=== PATIENT | female | born 1940 | race Two or more races ===

== ENCOUNTER 2017-02-21 00:19 | Emergency (ER) | payer MEDICARE, OTHER ==
[2017-02-21] MEDS ORDERED: ACETAMINOPHEN 325 MG TABLET PO ONE (04:38)
--- NOTE | 2017-02-21 05:04 | RADIOLOGY REPORT (SQ) ---
EXAM DESCRIPTION: TIBIA FIBULA RIGHT COMPLETED DATE/TIME: 02/21/2017 4:01 am REASON FOR STUDY: pain . Throbbing calf muscle pain. COMPARISON: Right knee x-ray 03/05/2015. NUMBER OF VIEWS: Two views. TECHNIQUE: Two radiographic images acquired of the right tibia and fibula to include the knee and an kle in at least one projection. LIMITATIONS: None. FINDINGS: MINERALIZATION: Normal. BONES: No acute fracture or dislocation. SOFT TISSUES: No obvious swelling or radiopaque foreign body. IMPRESSION: No radiographic evidence of acute injury. TECHNICAL DOCUMENTATION: JOB ID: [id number] [employer]- All Rights Reserved
--- NOTE | 2017-02-21 05:28 | ER Document Report ---
ED Extremity Problem, Lower - General Chief Complaint: Leg Pain Stated Complaint: LEG AND HIP PAIN Time Seen by Provider: 02/21/17 02:54 Notes: Patient is a 76-year-old female presents emergency department complaining of right frias pain. Described as burning pain worse with prolonged movement. Patient states that this sudden onset over the past 3 days. States it is worse with movement and does not bother her when she is lying in bed. Hurts to palpation at the lateral aspect of the frias. Otherwise she denies any swelling of her feet, erythema, edema. Has been taking Motrin at home for pain. Patient is not allowed to take Motrin for pain given that she has history of kidney disease. denies recent travel, surgery, no h/o cancer, nonsmoker TRAVEL OUTSIDE OF THE [place] IN LAST 30 DAYS: No - Related Data Allergies/Adverse Reactions: No Known Allergies Allergy (Verified 08/06/16 08:33) Past Medical History - Social History Smoking Status: Unknown if Ever Smoked Family History: CAD, Hyperlipidemia, Hypertension Patient has suicidal ideation: No Patient has homicidal ideation: No - Past Medical History Cardiac Medical History: Reports: Hx Heart Attack - 2009, Hx Hypercholesterolemia, Hx Hypertension - many years Denies: Hx Coronary Artery Disease Endocrine Medical History: Reports: Hx Diabetes Mellitus Type 2, Hx Hypothyroidism Renal/ Medical History: Denies: Hx Peritoneal Dialysis Musculoskeltal Medical History: Reports Hx Arthritis - back, Reports Hx Musculoskeletal Deformity, Reports Hx Musculoskeletal Trauma Past Surgical History: Reports: Hx Section, Hx Orthopedic Surgery. Denies: Hx Pacemaker - Immunizations Immunizations up to date: No Hx Diphtheria, Pertussis, Tetanus Vaccination: No Physical Exam - Vital signs Vitals: Temp Pulse Resp BP Pulse Ox 98.1 F 76 17 234/106 H 99 02/21/17 00:52 02/21/17 00:52 02/21/17 00:52 02/21/17 00:52 02/21/17 00:52 Interpretation: Hypertensive. No: Tachycardic, Tachypneic - General General appearance: Appears well, Alert In distress: None - Respiratory Respiratory status: No respiratory distress Chest status: Nontender Breath sounds: Normal Chest palpation: Normal - Cardiovascular Rhythm: Regular Heart sounds: Normal auscultation Murmur: No Pulses: Normal: Popliteal, Posterior tibial, Dorsalis pedis Normal capillary refill: Yes - Extremities Calf: Normal, Nontender, Other - -homans sign. No: Unable to bear weight Left calf in cm: 39 Right calf in cm: 38 Ankle: Normal, Nontender. No: Edema, Unable to bear weight Foot: Normal, Nontender. No: Edema Notes: tenderness along the right lateral frias - Neurological Sensory: Normal - Skin Skin Temperature: Warm Skin Moisture: Dry Skin Color: Normal. negative: Erythema Skin Turgor: Elastic Skin irregularity: negative: Erythema, Tender indurated area Course - Re-evaluation Re-evalutation: 02/21/17 05:27 This 76-year-old female is hemodynamic stable, no acute distress and afebrile. Patient's well score is 0. No indication for additional imaging to evaluate for DVT given patient does not have enough precipitating factors. Physical exam and history consistent with frias splints. Discussed with patient management and home and indications return to the emergency department - Vital Signs Vital signs: Temp Pulse Resp BP Pulse Ox 98.1 F 76 17 168/82 H 99 02/21/17 00:52 02/21/17 00:52 02/21/17 05:46 02/21/17 05:46 02/21/17 05:46 - Diagnostic Test Radiology reviewed: Image reviewed, Reports reviewed Discharge - Discharge Clinical Impression: Leg pain Condition: Good Disposition: HOME, SELF-CARE Instructions: Leg Pain Nonspecific ([facility]) Additional Instructions: You can use salonpas patches over the counter Prescriptions: Tramadol HCl 50 mg PO Q8HP PRN #15 tablet PRN Reason: Forms: Elevated Blood Pressure Referrals: MIGUEL ANGEL MOSS MD [Primary Care Provider] - Follow up in 3-5 days
[2017-02-21] MEDS ORDERED: TRAMADOL HCL 50 MG TABLET PO ONE (05:30)
[2017-02-21 06:15] VITALS: BP 168/82
== END 2017-02-21 05:50 | disposition home or self-care (01) ==
LOC: ER 00:19
DX: M79.661 Pain in right lower leg (principal); I25.2 Old myocardial infarction; I10 Essential (primary) hypertension; E11.9 Type 2 diabetes mellitus without complications; Z87.442 Personal history of urinary calculi
CPT/HCPCS: 99283; 73590; A9270 ×2

== ENCOUNTER → 2017-03-26 | Outpatient (CLI) | payer MEDICARE, OTHER ==
[2017-03-26 13:02] LABS: HEMATOCRIT 38.9 % (36.0-47.0); HEMOGLOBIN 12.7 g/dL (12.0-15.5); HGB HCT DIFFERENCE -0.8; MEAN CORPUSCULAR HEMOGLOBIN 29.8 pg (27.0-33.4); MEAN CORPUSCULAR HGB CONC 32.7 g/dL (32.0-36.0); MEAN CORPUSCULAR VOLUME 91 fl (80-97); RED BLOOD COUNT 4.26 10^6/uL (3.72-5.28); RED CELL DISTRIBUTION WIDTH 13.3 % (11.5-14.0); WHITE BLOOD COUNT 6.8 10^3/uL (4.0-10.5)
[2017-03-26 13:16] LABS: APPEARANCE,URINE CLEAR; BILIRUBIN,URINE NEGATIVE (NEGATIVE); GLUCOSE, URINE NEGATIVE (NEGATIVE); KETONES,URINE NEGATIVE (NEGATIVE); LEUKOCYTE ESTERASE,URINE TRACE (NEGATIVE); NITRITE,URINE NEGATIVE (NEGATIVE); PROTEIN,URINE NEGATIVE (NEGATIVE); URINE SPECIFIC GRAVITY 1.011; UROBILINOGEN,URINE NEGATIVE mg/dL (<2.0)
[2017-03-26 13:18] LABS: ANION GAP 13 (5-19); BLOOD UREA NITROGEN 20 mg/dL (7-20); CALCIUM 10.1 mg/dL (8.4-10.2); CARBON DIOXIDE 26 mmol/L (22-30); CHLORIDE 100 mmol/L (98-107); CREATININE RESULT 1.28 mg/dL (0.52-1.25); GLUCOSE 140 mg/dL (75-110); POTASSIUM 4.7 mmol/L (3.6-5.0); SODIUM 139.2 mmol/L (137-145)
== END ==
LOC: OD 11:51
PROVIDERS: ATTEND Internal Medicine Nephrology
DX: I12.9 Hypertensive chronic kidney disease with stage 1 through stage 4 chronic kidney disease, or unspecified chronic kidney disease (principal); N18.3 Chronic kidney disease, stage 3 (moderate); E87.5 Hyperkalemia; E11.9 Type 2 diabetes mellitus without complications
CPT/HCPCS: 36415; 80048; 81001; 85027

== ENCOUNTER 2017-07-07 17:52 | Emergency (ER) | payer MEDICARE, OTHER ==
[2017-07-07] MEDS ORDERED: ATENOLOL 50 MG TABLET PO ONE (18:51)
[2017-07-07] MEDS ORDERED: LOSARTAN POTASSIUM 25 MG TABLET PO ONE (18:51)
[2017-07-07] MEDS ORDERED: HYDROMORPHONE HCL INJ/PF 2 MG/ML AMPULE IM ONE (18:51)
--- NOTE | 2017-07-07 18:53 | ER Document Report ---
ED Medical Screen (RME) - General Chief Complaint: Leg Pain Stated Complaint: LEG PAIN Time Seen by Provider: 07/07/17 18:35 Notes: Patient complains of right lateral thigh pain. Patient is also noticed to have a very high blood pressure. However on patient's last visit the emergency department it was similarly elevated. Patient denies missing any doses of her blood pressure medication. No recent falls or trauma. TRAVEL OUTSIDE OF THE [place] IN LAST 30 DAYS: No - Related Data Allergies/Adverse Reactions: tramadol Allergy (Verified 07/07/17 18:00) Past Medical History - Past Medical History Cardiac Medical History: Reports: Hx Heart Attack - 2009, Hx Hypercholesterolemia, Hx Hypertension - many years Denies: Hx Coronary Artery Disease Endocrine Medical History: Reports: Hx Diabetes Mellitus Type 2, Hx Hypothyroidism Renal/ Medical History: Denies: Hx Peritoneal Dialysis Musculoskeltal Medical History: Reports Hx Arthritis - back, Reports Hx Musculoskeletal Deformity, Reports Hx Musculoskeletal Trauma Past Surgical History: Reports: Hx Section, Hx Orthopedic Surgery. Denies: Hx Pacemaker - Immunizations Immunizations up to date: No Hx Diphtheria, Pertussis, Tetanus Vaccination: No Physical Exam - Vital signs Vitals: Temp Pulse BP Pulse Ox 98.4 F 66 231/110 H 97 07/07/17 18:01 07/07/17 18:01 07/07/17 18:01 07/07/17 18:01 Course - Vital Signs Vital signs: Temp Pulse Resp BP Pulse Ox 98.4 F 66 231/110 H 97 07/07/17 18:01 07/07/17 18:01 07/07/17 18:01 07/07/17 18:01
--- NOTE | 2017-07-07 20:47 | ER Document Report ---
ED General - General Chief Complaint: Leg Pain Stated Complaint: LEG PAIN Time Seen by Provider: 07/07/17 18:35 TRAVEL OUTSIDE OF THE [place] IN LAST 30 DAYS: No - HPI Notes: Patient is a 76-year-old female with a history of hypertension, CA, diabetes, hypothyroid, hypercholesterolemia presents to the ED complaining of right leg pain x1-2 days. Pt states that she does have pain with ambulation. Pt has a h/ o sciatica as well. Pt states that she will feel pain in that rt buttock area that radiates down the LE. Patient states that she does continue take her home medications as directed. She has no other concerns or complaints at this time. Otherwise she states that she feels well. Denies any headache, fever,neck pain, changes in vision/speech/mentation/hearing, URI, sore throat, chest pain, palpitations, syncope, cough, shortness of breath, wheeze, dyspnea, abdominal pain, nausea/vomiting/diarrhea, urinary retention, dysuria, hematuria, loss of control of bowel or bladder, numbness/tingling, saddle anesthesia, muscle paralysis/weakness, or rash. - Related Data Allergies/Adverse Reactions: tramadol Allergy (Verified 07/07/17 18:00) Past Medical History - Social History Smoking Status: Unknown if Ever Smoked Family History: CAD, Hyperlipidemia, Hypertension - Past Medical History Cardiac Medical History: Reports: Hx Heart Attack - 2009, Hx Hypercholesterolemia, Hx Hypertension - many years Denies: Hx Coronary Artery Disease Endocrine Medical History: Reports: Hx Diabetes Mellitus Type 2, Hx Hypothyroidism Renal/ Medical History: Denies: Hx Peritoneal Dialysis Musculoskeltal Medical History: Reports Hx Arthritis - back, Reports Hx Musculoskeletal Deformity, Reports Hx Musculoskeletal Trauma Past Surgical History: Reports: Hx Section, Hx Orthopedic Surgery. Denies: Hx Pacemaker - Immunizations Immunizations up to date: No Hx Diphtheria, Pertussis, Tetanus Vaccination: No Review of Systems - Review of Systems Notes: REVIEW OF SYSTEMS: CONSTITUTIONAL : Denies fever, chills, or sweats. Denies recent illness. EENT: Denies eye, ear, throat, or mouth pain or symptoms. Denies nasal or sinus congestion or discharge. Denies throat, tongue, or mouth swelling or difficulty swallowing. CARDIOVASCULAR: Denies chest pain. Denies palpitations or racing or irregular heart beat. Denies ankle edema. RESPIRATORY: Denies cough, cold, or chest congestion. Denies shortness of breath, difficulty breathing, or wheezing. GASTROINTESTINAL: Denies abdominal pain or distention. Denies nausea, vomiting , or diarrhea. Denies blood in vomitus, stools, or per rectum. Denies black, tarry stools. Denies constipation. GENITOURINARY: Denies difficulty urinating, painful urination, burning, frequency, blood in urine, or discharge. MUSCULOSKELETAL: see hpi SKIN: Denies rash, lesions or sores. NEUROLOGICAL: Denies confusion or altered mental status. Denies passing out or loss of consciousness. Denies dizziness or lightheadedness. Denies headache. Denies weakness or paralysis or loss of use of either side. Denies problems with gait or speech. Denies sensory loss, numbness, or tingling. ALL OTHER SYSTEMS REVIEWED AND NEGATIVE. Dictation was performed using [employer] voice recognition software Physical Exam - Vital signs Vitals: Temp Pulse BP Pulse Ox 98.4 F 66 231/110 H 97 07/07/17 18:01 07/07/17 18:01 07/07/17 18:01 07/07/17 18:01 Notes: PHYSICAL EXAMINATION: GENERAL: Well-appearing, well-nourished and in no acute distress. A&Ox4. Pleasant, happy. HEAD: Atraumatic, normocephalic. EYES: Pupils equal round and reactive to light, extraocular movements intact, sclera anicteric, conjunctiva are normal. ENT: Nares patent and without discharge. oropharynx clear without exudates. No tonsilar hypertrophy or erythema. Moist mucous membranes. No sinus tenderness. NECK: Normal range of motion, supple without lymphadenopathy. No rigidity/ meningismus. LUNGS: Breath sounds clear to auscultation bilaterally and equal. No wheezes rales or rhonchi. HEART: Regular rate and rhythm without murmurs, rubs, gallops. ABDOMEN: Soft, nontender, nondistended abdomen. No guarding, no rebound. No masses appreciated. Normal bowel sounds present. No CVA tenderness bilaterally. Musculoskeletal: LE's b/l: FROM to passive/active. Strength 5+/5. + tenderness to the rt posterior calf and medial thigh. No erythema, warmth, cord, induration, or ecchymosis noted. N/V intact distal b/l. Extremities: No cyanosis, clubbing, or edema b/l. Peripheral pulses 2+. Capillary refill less than 3 seconds. NEUROLOGICAL: MMSE intact. Cranial nerves grossly intact. Normal speech. Normal sensory, motor exams PSYCH: Normal mood, normal affect. SKIN: Warm, Dry, normal turgor, no rashes or lesions noted. Course - Re-evaluation Re-evalutation: 07/07/17 22:52 Patient is an afebrile, well-hydrated, 76-year-old female who presents the ED with right leg pain and right buttock pain, suspect possible sciatica. Vitals are stable. PE is otherwise unremarkable for any focal neurological deficits. Venous Doppler was unremarkable to the right lower extremity. Patient states that her pain has improved and she is feeling better than when she arrived. Patient does have long-standing hypertension which has been stable during her stay. Patient did receive 2 blood pressure medications at arrival. Patient instructed to continue her home medications as directed. Patient is currently asymptomatic and has been asymptomatic with elevated blood pressure. Low sodium diet and monitor blood pressure regularly. Low suspicion for any meningitis, fracture, expanding/ruptured AAA, cauda equina syndrome, epidural mass lesion/abscess, herniated disc causing severe spinal stenosis, or other systemic infection at this time. Patient is aware that her condition can change from initial presentation and that she needs monitor symptoms closely for any acute changes. Conservative measures for symptoms. Recheck with your PCM in 2-3 days. Return to the ED with any worsening/concerning symptoms otherwise as reviewed discharge. Patient is in agreement. - Vital Signs Vital signs: Temp Pulse Resp BP Pulse Ox 98.4 F 61 182/78 H 98 07/07/17 18:01 07/07/17 19:20 07/07/17 22:31 07/07/17 22:31 Discharge - Discharge Clinical Impression: Leg pain, right Condition: Stable Disposition: HOME, SELF-CARE Instructions: Sciatica ([facility]), Leg Pain Nonspecific ([facility]), Ice Packs ([facility]), Warm Packs ([facility]), High Blood Pressure ([facility]) Additional Instructions: Rest, Ice, Compression, Elevation Monitor blood pressure and keep a log Low sodium diet Take home medications as directed* Tylenol as needed Light stretches daily Strength exercises as able Moist heat and massage may help F/u with your PCP in 2-3 days for a recheck and management of your elevated blood pressure Consider consult(s) with Orthopedics/physical therapy for ongoing/worsening symptoms Consider consult with a [facility] (Dr. Méndez) Return to the ED with any worsening symptoms and/or development of fever, headache, changes in vision/hearing/speech/mentation, chest pain, palpitations, syncope, shortness of breath, trouble breathing, abdominal pain, n/v/d, muscle weakness/paralysis, numbness/tingling, swelling, redness, or other worsening symptoms that are concerning to you. Forms: Elevated Blood Pressure Referrals: MIGUEL ANGEL MOSS MD [Primary Care Provider] - 07/09/17 SAHRA MÉNDEZ MD [ACTIVE STAFF] - Follow up as needed [facility] [Provider Group] - Follow up as needed
[2017-07-07 23:41] VITALS: BP 200/80
--- NOTE | 2017-07-08 08:14 | XCELERA REPORT ---
[address] [address] Lower Extremity Venous Evaluation Name: IRASEMA HOLGUIN Age: 76 yrs Gender: Female : 1940 Patient Status: Emergency Patient Location: ER Study Date: 07/07/2017 10:06 PM Procedure: Color flow and duplex imaging of the veins of the right lower extremity as well as the left Common Femoral vein. Reason For Study: Rt posterior calf/leg pain Ordering Physician: MORENO BALL PA-C Performed By: Stella Mccauley Right Sided Venous Evaluation Normal vessel filling wall to wall, compression and augmentation as well as Colour flow down to the infrageniculate veins. Left Sided Venous Evaluation The left common femoral vein is fully compressible. Spontaneous and phasic flow is present in the left common femoral vein. Interpretation Summary No duplex evidence of DVT or obstruction in the right lower extremity nor in the left Common Femoral vein. : MORENO BALL PA-C > Sabino Thomas
== END 2017-07-07 23:06 | disposition home or self-care (01) ==
LOC: ER 17:52
DX: M79.604 Pain in right leg (principal); M25.551 Pain in right hip; I10 Essential (primary) hypertension; I25.2 Old myocardial infarction; E11.9 Type 2 diabetes mellitus without complications; Z79.899 Other long term (current) drug therapy; Z88.5 Allergy status to narcotic agent
CPT/HCPCS: 99284; 96372; 93971 ×2; A9270 ×2; J1170

== ENCOUNTER → 2017-09-30 | Outpatient (CLI) | payer MEDICARE, OTHER ==
[2017-09-30 13:35] LABS: HEMATOCRIT 36.4 % (36.0-47.0); HEMOGLOBIN 12.3 g/dL (12.0-15.5); MEAN CORPUSCULAR HEMOGLOBIN 30.2 pg (27.0-33.4); MEAN CORPUSCULAR HGB CONC 33.8 g/dL (32.0-36.0); MEAN CORPUSCULAR VOLUME 89 fl (80-97); PLATELET COUNT 282 10^3/uL (150-450); RED BLOOD COUNT 4.07 10^6/uL (3.72-5.28); RED CELL DISTRIBUTION WIDTH 12.8 % (11.5-14.0); WHITE BLOOD COUNT 9.6 10^3/uL (4.0-10.5)
[2017-09-30 13:45] LABS: APPEARANCE,URINE CLEAR; BILIRUBIN,URINE NEGATIVE (NEGATIVE); COLOR,URINE YELLOW; GLUCOSE, URINE NEGATIVE (NEGATIVE); KETONES,URINE NEGATIVE (NEGATIVE); LEUKOCYTE ESTERASE,URINE NEGATIVE (NEGATIVE); NITRITE,URINE NEGATIVE (NEGATIVE); PROTEIN,URINE NEGATIVE (NEGATIVE); UROBILINOGEN,URINE NEGATIVE mg/dL (<2.0)
[2017-09-30 14:03] LABS: ANION GAP 14 (5-19); BLOOD UREA NITROGEN 20 mg/dL (7-20); CALCIUM 10.9 mg/dL (8.4-10.2); CARBON DIOXIDE 29 mmol/L (22-30); CHLORIDE 98 mmol/L (98-107); GLUCOSE 100 mg/dL (75-110); SODIUM 140.6 mmol/L (137-145)
[2017-10-01 12:38] LABS: CREATININE URINE 107.8 mg/dL (Not Estab.); MICROALBUMIN URINE 29.1 ug/mL (Not Estab.)
== END ==
LOC: OD 12:24
PROVIDERS: ATTEND Internal Medicine Nephrology
DX: I12.9 Hypertensive chronic kidney disease with stage 1 through stage 4 chronic kidney disease, or unspecified chronic kidney disease (principal); N18.3 Chronic kidney disease, stage 3 (moderate); E11.9 Type 2 diabetes mellitus without complications; E87.5 Hyperkalemia
CPT/HCPCS: 36415; 80048; 81001; 82043; 82570; 85027

== ENCOUNTER 2017-10-05 12:23 | Emergency (ER) | payer MEDICARE, OTHER ==
[2017-10-05 12:42] VITALS: BP 180/84
--- NOTE | 2017-10-05 13:08 | ER Document Report ---
ED Medical Screen (RME) - General Chief Complaint: Blurred Vision Stated Complaint: VISION PROBLEM Time Seen by Provider: 10/05/17 13:06 Notes: Patient states starting yesterday she noticed that her vision was blurry in her right eye. She states that her left eye is watering but it is not blurry. She denies any pain. No nausea. She states that she can see out of the right eye but that things are blurry. She states she is also noticed that her blood sugars have been high at home. No previous history of any type of eye problems. TRAVEL OUTSIDE OF THE [place] IN LAST 30 DAYS: No - Related Data Allergies/Adverse Reactions: tramadol Allergy (Verified 07/07/17 18:00) Past Medical History - Social History Chew tobacco use (# tins/day): No Frequency of alcohol use: None Drug Abuse: None - Past Medical History Cardiac Medical History: Reports: Hx Heart Attack - 2009, Hx Hypercholesterolemia, Hx Hypertension - many years Denies: Hx Coronary Artery Disease Endocrine Medical History: Reports: Hx Diabetes Mellitus Type 2, Hx Hypothyroidism Renal/ Medical History: Denies: Hx Peritoneal Dialysis Musculoskeltal Medical History: Reports Hx Arthritis - back, Reports Hx Musculoskeletal Deformity, Reports Hx Musculoskeletal Trauma Past Surgical History: Reports: Hx Section, Hx Orthopedic Surgery. Denies: Hx Pacemaker - Immunizations Immunizations up to date: No Hx Diphtheria, Pertussis, Tetanus Vaccination: No Physical Exam - Vital signs Vitals: Temp Pulse Resp BP Pulse Ox 98.2 F 91 14 180/84 H 97 10/05/17 12:41 10/05/17 12:41 10/05/17 12:41 10/05/17 12:41 10/05/17 12:41 Course - Vital Signs Vital signs: Temp Pulse Resp BP Pulse Ox 98.2 F 91 14 180/84 H 97 10/05/17 12:41 10/05/17 12:41 10/05/17 12:41 10/05/17 12:41 10/05/17 12:41
[2017-10-05 13:59] LABS: ABSOLUTE LYMPHOCYTES (AUTO) 3.5 10^3/uL (0.5-4.7); ABSOLUTE MONOCYTES (AUTO) 0.7 10^3/uL (0.1-1.4); ABSOLUTE NEUT (AUTO) 5.1 10^3/uL (1.7-8.2); BASOPHILS % (AUTO) 0.4 % (0-2); EOSINOPHILS % (AUTO) 0.5 % (0-6); HEMATOCRIT 35.9 % (36.0-47.0); HEMOGLOBIN 12.5 g/dL (12.0-15.5); LYMPHOCYTES % (AUTO) 37.6 % (13-45); MEAN CORPUSCULAR HEMOGLOBIN 30.8 pg (27.0-33.4); MEAN CORPUSCULAR HGB CONC 34.9 g/dL (32.0-36.0); MEAN CORPUSCULAR VOLUME 88 fl (80-97); MONOCYTES % (AUTO) 7.6 % (3-13); PLATELET COUNT 307 10^3/uL (150-450); RED BLOOD COUNT 4.07 10^6/uL (3.72-5.28); RED CELL DISTRIBUTION WIDTH 12.8 % (11.5-14.0); SEGMENTED NEUTROPHILS % (AUTO) 53.9 % (42-78); TOTAL CELLS COUNTED % (AUTO) 100 %; WHITE BLOOD COUNT 9.4 10^3/uL (4.0-10.5)
[2017-10-05 14:18] LABS: ANION GAP 14 (5-19); BLOOD UREA NITROGEN 21 mg/dL (7-20); CALCIUM 10.6 mg/dL (8.4-10.2); CARBON DIOXIDE 29 mmol/L (22-30); CHLORIDE 95 mmol/L (98-107); GLUCOSE 64 mg/dL (75-110); SODIUM 137.8 mmol/L (137-145)
--- NOTE | 2017-10-05 16:47 | ER Document Report ---
ED General - General Chief Complaint: Blurred Vision Stated Complaint: VISION PROBLEM Time Seen by Provider: 10/05/17 13:06 Mode of Arrival: Ambulatory Information source: Patient TRAVEL OUTSIDE OF THE [place] IN LAST 30 DAYS: No - HPI Patient complains to provider of: blurry vision right eye Onset: Yesterday - awoke with it yesterday am - Related Data Allergies/Adverse Reactions: tramadol Allergy (Verified 07/07/17 18:00) Past Medical History - Social History Smoking Status: Never Smoker Chew tobacco use (# tins/day): No Frequency of alcohol use: None Drug Abuse: None Family History: CAD, Hyperlipidemia, Hypertension Patient has suicidal ideation: No Patient has homicidal ideation: No - Past Medical History Cardiac Medical History: Reports: Hx Heart Attack - 2009, Hx Hypercholesterolemia, Hx Hypertension - many years Denies: Hx Coronary Artery Disease Endocrine Medical History: Reports: Hx Diabetes Mellitus Type 2, Hx Hypothyroidism Renal/ Medical History: Denies: Hx Peritoneal Dialysis Musculoskeltal Medical History: Reports Hx Arthritis - back, Reports Hx Musculoskeletal Deformity, Reports Hx Musculoskeletal Trauma Past Surgical History: Reports: Hx Section, Hx Orthopedic Surgery. Denies: Hx Pacemaker - Immunizations Immunizations up to date: No Hx Diphtheria, Pertussis, Tetanus Vaccination: No Review of Systems - Review of Systems Constitutional: No symptoms reported EENT: No symptoms reported Cardiovascular: No symptoms reported Respiratory: No symptoms reported Gastrointestinal: No symptoms reported Genitourinary: No symptoms reported Female Genitourinary: No symptoms reported Musculoskeletal: No symptoms reported Skin: No symptoms reported Hematologic/Lymphatic: No symptoms reported Neurological/Psychological: See HPI Physical Exam - Vital signs Vitals: Temp Pulse Resp BP Pulse Ox 98.2 F 91 14 180/84 H 97 10/05/17 12:41 10/05/17 12:41 10/05/17 12:41 10/05/17 12:41 10/05/17 12:41 - Notes Notes: PHYSICAL EXAMINATION: GENERAL: Well-appearing, well-nourished and in no acute distress. HEAD: Atraumatic, normocephalic. EYES: Pupils equal round and reactive to light, extraocular movements intact, conjunctiva are normal. Please see HEENT exam for further notes ENT: Nares patent, oropharynx clear without exudates. Moist mucous membranes. NECK: Normal range of motion, supple without lymphadenopathy LUNGS: Breath sounds clear to auscultation bilaterally and equal. No wheezes rales or rhonchi. HEART: Regular rate and rhythm without murmurs ABDOMEN: Soft, nontender, nondistended abdomen. No guarding, no rebound. No masses appreciated. Female : deferred Musculoskeletal: Normal range of motion, no pitting or edema. No cyanosis. NEUROLOGICAL: Cranial nerves grossly intact. Normal speech, normal gait. Normal sensory, motor exams PSYCH: Normal mood, normal affect. SKIN: Warm, Dry, normal turgor, no rashes or lesions noted. - HEENT Head: Normocephalic, Atraumatic Eyes: Normal, Tears - os Conjunctiva: Normal Cornea: Normal Extraocular movements intact: Yes Eyelashes: Normal Pupils: PERRL Visual acuity- Right eye: 20/200 Visual acuity- Left eye: 20/50 -1 Visual acuity- Both eyes: 20/50 -1 Corrective lenses worn: No Right intraocular pressure: 15 12 and 18 Nerve palsy: No Visual hope normal: No Course - Re-evaluation Re-evalutation: 10/05/17 17:37 Su from MRI called over. She states patient's GFR was low so she talked to the radiologist and they are going to do the MRI without contrast. 10/05/17 19:15 Intraocular pressure I was 15, 12 and 18. 10/05/17 19:24 I did speak to who stated to have the patient call the office at 8: 30 in the morning and he will be seeing her tomorrow. Patient and her son are aware and agreeable to the plan. 10/05/17 19:25 Also told me she saw the risk and insurance manager yesterday who is following her kidney function. 10/05/17 19:29 Blood sugar was 65. She was asymptomatic. We did give her snack prior to discharge. - Vital Signs Vital signs: Temp Pulse Resp BP Pulse Ox 98.2 F 91 14 180/84 H 97 10/05/17 12:41 10/05/17 12:41 10/05/17 12:41 10/05/17 12:41 10/05/17 12:41 - Laboratory Result Diagrams: 10/05/17 13:45 10/05/17 13:45 Laboratory results interpreted by me: 10/05/17 10/05/17 13:45 13:45 Hct 35.9 L Chloride 95 L BUN 21 H Creatinine 1.54 H Est GFR ( Amer) 40 L Est GFR (Non-Af Amer) 33 L Glucose 64 L Calcium 10.6 H - Diagnostic Test Radiology reviewed: Reports reviewed Radiology results interpreted by me: 10/05/17 19:23 MRI of head and orbits showed no acute findings. 10/05/17 19:24 Discharge - Discharge Clinical Impression: Blurry vision, right eye Disposition: HOME, SELF-CARE Additional Instructions: All Dr. Sheth"s office in the a.m. at 830 will let you know what time to go in for appointment tomorrow. Referrals: JAKY SHETH, [ACTIVE STAFF] - Follow up as needed
--- NOTE | 2017-10-05 19:01 | RADIOLOGY REPORT (SQ) ---
EXAM DESCRIPTION: MRI HEAD WITHOUT COMPLETED DATE/TIME: 10/05/2017 6:44 pm REASON FOR STUDY: right blurry vision please include orbits COMPARISON: None. TECHNIQUE: Multiplanar imaging includes non-contrasted T1, T2, FLAIR, and Diffusion with ADC map seq uences. Images stored on PACS. Additional noncontrast T1 and T2 weighted imaging of the orbits perfo rmed. No contrast was given due to patient's decreased GFR. LIMITATIONS: None. FINDINGS: ANATOMY: No anomalies. Normal vascular flow voids. Pituitary fossa normal. CSF SPACES: Normal in size and contour for degree of volume loss. No hemorrhage. CEREBRUM: Volume loss predominately affecting the frontal and anterior temporal lobes. A few high-si gnal intensity lesions scattered throughout the white matter on FLAIR imaging with distribution sugge sting chronic micro-vascular ischemic change. Sulci and gyri normal in size and contour. No evidenc e of hemorrhage, mass or extraaxial fluid collection. POSTERIOR FOSSA: No signal alteration. No hemorrhage. No edema, masses or mass effect. Internal barbara tory canals, cerebello-pontine angles, mastoids normal. DIFFUSION: Negative for acute or sub-acute infarction. ORBITS: No masses. Globes normal. PARANASAL SINUSES: No fluid levels. Mucosa normal. OTHER: No other significant finding. IMPRESSION: NO ACUTE ISCHEMIA, HEMORRHAGE, OR MASS LESION. NO SIGNIFICANT ORBITAL ABNORMALITY IDENTIFIED. MILD CHRONIC MICROVASCULAR ISCHEMIC DISEASE. VOLUME LOSS WITH A FRONTOTEMPORAL DISTRIBUTION CAN BE SEEN WITH FRONTOTEMPORAL DEMENTIA. CORRELATE C LINICALLY. EVIDENCE OF ACUTE STROKE: NO. TECHNICAL DOCUMENTATION: JOB ID: [id number] [employer]- All Rights Reserved
== END 2017-10-05 20:20 | disposition home or self-care (01) ==
LOC: ER 12:23
DX: H53.8 Other visual disturbances (principal); E11.9 Type 2 diabetes mellitus without complications; I10 Essential (primary) hypertension; I25.2 Old myocardial infarction
CPT/HCPCS: 36415; 70551; 80048; 82962; 85025; 99284

== ENCOUNTER 2017-11-11 06:58 | Day surgery (SDC) | payer MEDICARE, OTHER ==
[~2017-11-11 06:58] MED LIST: KETOROLAC TROMETHAMINE 0.45% 4 DROP/0.4 ML DROPERETTE OD PRN; MIDAZOLAM 2 MG/2 ML INJ ONE
[2017-11-11] MEDS ORDERED: EPINEPHRINE INJ/PF 1 MG/1 ML AMPULE ONE (07:08)
[2017-11-11] MEDS ORDERED: LIDOCAINE 1% INJ-PF (10 MG/ML) 30 ML SDV ONE (07:08)
[2017-11-11] MEDS ORDERED: CHONDR SU A NA/HYALUR INTRAOC KIT (SURGICARE) ONE (07:08)
[2017-11-11] MEDS: TETRACAINE HCL 0.5% OPH SOLN 0.6 ML DROPERETTE OD PRN ×3 (07:17→07:57)
[2017-11-11] MEDS: BESIFLOXACIN HCL 0.6% OPH SUSP 5 ML BOTTLE OD PRN ×4 (07:18→08:15)
[2017-11-11] MEDS: TROPICAMIDE 1% OPH SOLN 3 ML OD PRN ×3 (07:18→07:41)
[2017-11-11] MEDS: CYCLOPENTOLATE 0.2%/PHENYLEPHRINE 1% OPH SOLN 2 ML OD PRN ×3 (07:18→07:41)
[2017-11-11] MEDS: TOBRAMYCIN SULFATE/DEXAMETH OPH OINTMENT 3.5 GM ONE ×2 (08:15)
== END 2017-11-11 09:00 | disposition home or self-care (01) ==
LOC: SC 06:58
PROVIDERS: ATTEND Ophthalmology
PROC: 08RJ3JZ Replacement of Right Lens with Synthetic Substitute, Percutaneous Approach (ICD-10-PCS; principal; 2017-11-11 07:45)
DX: H25.11 Age-related nuclear cataract, right eye (principal); M19.90 Unspecified osteoarthritis, unspecified site; E11.9 Type 2 diabetes mellitus without complications; I10 Essential (primary) hypertension; E03.9 Hypothyroidism, unspecified; I25.2 Old myocardial infarction; G47.30 Sleep apnea, unspecified; Z79.899 Other long term (current) drug therapy; Z79.84 Long term (current) use of oral hypoglycemic drugs
CPT/HCPCS: 82962; 66984; V2630; J2250; J3490 ×3; A9270; J0171; 142

== ENCOUNTER 2017-11-25 06:25 | Day surgery (SDC) | payer MEDICARE, OTHER ==
[~2017-11-25 06:25] MED LIST changes: -KETOROLAC TROMETHAMINE 0.45% 4 DROP/0.4 ML DROPERETTE OD PRN; +KETOROLAC TROMETHAMINE 0.45% 4 DROP/0.4 ML DROPERETTE OS PRN; -MIDAZOLAM 2 MG/2 ML INJ ONE
[2017-11-25] MEDS: TETRACAINE HCL 0.5% OPH SOLN 0.6 ML DROPERETTE OS PRN ×5 (06:57→07:53)
[2017-11-25] MEDS: CYCLOPENTOLATE 0.2%/PHENYLEPHRINE 1% OPH SOLN 2 ML OS PRN ×3 (06:58→07:22)
[2017-11-25] MEDS: TROPICAMIDE 1% OPH SOLN 3 ML OS PRN ×3 (06:58→07:22)
[2017-11-25] MEDS: BESIFLOXACIN HCL 0.6% OPH SUSP 5 ML BOTTLE OS PRN ×4 (06:59→08:11)
[2017-11-25] MEDS ORDERED: FENTANYL CITRATE INJ/PF 100 MCG/2 ML AMPUL ONE (07:36)
[2017-11-25] MEDS ORDERED: MIDAZOLAM 2 MG/2 ML INJ ONE (07:36)
[2017-11-25] MEDS: EPINEPHRINE INJ/PF 1 MG/1 ML AMPULE ONE ×2 (08:00)
[2017-11-25] MEDS: CHONDR SU A NA/HYALUR INTRAOC KIT (SURGICARE) ONE ×2 (08:00)
[2017-11-25] MEDS: LIDOCAINE 1% INJ-PF (10 MG/ML) 30 ML SDV ONE ×2 (08:00)
[2017-11-25] MEDS: TOBRAMYCIN SULFATE/DEXAMETH OPH OINTMENT 3.5 GM ONE ×2 (08:11)
== END 2017-11-25 08:53 | disposition home or self-care (01) ==
LOC: SC 06:25
PROVIDERS: ATTEND Ophthalmology
PROC: 08RK3JZ Replacement of Left Lens with Synthetic Substitute, Percutaneous Approach (ICD-10-PCS; principal; 2017-11-25 07:45)
DX: H25.12 Age-related nuclear cataract, left eye (principal); Z98.41 Cataract extraction status, right eye; M19.90 Unspecified osteoarthritis, unspecified site; E11.9 Type 2 diabetes mellitus without complications; I10 Essential (primary) hypertension; E03.9 Hypothyroidism, unspecified; Z79.899 Other long term (current) drug therapy; Z79.84 Long term (current) use of oral hypoglycemic drugs; Z88.5 Allergy status to narcotic agent; I25.2 Old myocardial infarction
CPT/HCPCS: 66984; 82962; V2630; J2250; J3490 ×3; A9270; J0171; J3010; 142

== ENCOUNTER → 2018-02-25 | Outpatient (CLI) | payer MEDICARE, OTHER ==
[2018-02-25 08:00] LABS: HEMATOCRIT 34.6 % (36.0-47.0); MEAN CORPUSCULAR HEMOGLOBIN 30.8 pg (27.0-33.4); MEAN CORPUSCULAR HGB CONC 34.6 g/dL (32.0-36.0); MEAN CORPUSCULAR VOLUME 89 fl (80-97); PLATELET COUNT 254 10^3/uL (150-450); RED CELL DISTRIBUTION WIDTH 13.6 % (11.5-14.0); WHITE BLOOD COUNT 7.5 10^3/uL (4.0-10.5)
[2018-02-25 08:25] LABS: ALANINE AMINOTRANSFERASE 22 U/L (9-52); ALBUMIN 4.4 g/dL (3.5-5.0); ALKALINE PHOSPHATASE 73 U/L (38-126); ANION GAP 12 (5-19); ASPARTATE AMINO TRANSFERASE 23 U/L (14-36); BILIRUBIN,DIRECT 0.3 mg/dL (0.0-0.4); BILIRUBIN,TOTAL 0.3 mg/dL (0.2-1.3); BLOOD UREA NITROGEN 23 mg/dL (7-20); CALCIUM 10.2 mg/dL (8.4-10.2); CARBON DIOXIDE 28 mmol/L (22-30); CHLORIDE 102 mmol/L (98-107); GLUCOSE 158 mg/dL (75-110); PHOSPHORUS 2.8 mg/dL (2.5-4.5); POTASSIUM 4.9 mmol/L (3.6-5.0); SODIUM 142.1 mmol/L (137-145); TOTAL PROTEIN 7.8 g/dL (6.3-8.2)
== END ==
LOC: OD 07:26
PROVIDERS: ATTEND Internal Medicine Nephrology
DX: I12.9 Hypertensive chronic kidney disease with stage 1 through stage 4 chronic kidney disease, or unspecified chronic kidney disease (principal); E11.22 Type 2 diabetes mellitus with diabetic chronic kidney disease; N18.3 Chronic kidney disease, stage 3 (moderate); E87.5 Hyperkalemia
CPT/HCPCS: 36415; 80053; 83970; 84100; 85027

== ENCOUNTER 2018-06-11 07:37 | Emergency (ER) | payer MEDICARE, OTHER ==
--- NOTE | 2018-06-11 08:04 | ER Document Report ---
ED Fall <EMILI JOSE - Last Filed: 06/11/18 09:14> - General Mode of Arrival: Ambulatory Information source: Patient TRAVEL OUTSIDE OF THE [place] IN LAST 30 DAYS: No <GLORIA MCKEON - Last Filed: 06/11/18 12:36> - General Chief Complaint: Fall Injury Stated Complaint: FALL/LEFT SHOULDER,KNEE,FOOT PAIN Time Seen by Provider: 06/11/18 07:52 Notes: 37-year-old female who presents to the emergency department today with complaints of a fall that occurred yesterday at 2300. Patient states she was trying to get in her shower when this occurred. Patient states her left foot was in the bathtub and when she moved her right leg in she slipped. Patient states she has left knee pain and left great toe pain. (GLORIA MCKEON) - Related data Allergies/Adverse Reactions: tramadol Adverse Reaction (Verified 06/11/18 07:51) Past Medical History - General Information source: Patient - Social History Smoking Status: Never Smoker Cigarette use (# per day): No Frequency of alcohol use: None Drug Abuse: None Family History: CAD, Hyperlipidemia, Hypertension Patient has suicidal ideation: No Patient has homicidal ideation: No - Past Medical History Cardiac Medical History: Reports: Hx Heart Attack - 2009, Hx Hypercholesterolemia, Hx Hypertension - many years Pulmonary Medical History: Endocrine Medical History: Reports: Hx Diabetes Mellitus Type 2, Hx Hypothyroidism Musculoskeletal Medical History: Reports Hx Arthritis - back, Reports Hx Musculoskeletal Deformity, Reports Hx Musculoskeletal Trauma Past Surgical History: Reports: Hx Section - x3, Hx Orthopedic Surgery - L knee surgery - Immunizations Immunizations up to date: No Hx Diphtheria, Pertussis, Tetanus Vaccination: No <GLORIA MCKEON - Last Filed: 06/11/18 12:36> Review of Systems - Review of Systems Constitutional: No symptoms reported EENT: No symptoms reported Cardiovascular: No symptoms reported Respiratory: No symptoms reported Gastrointestinal: No symptoms reported Genitourinary: No symptoms reported Female Genitourinary: No symptoms reported Musculoskeletal: See HPI, Joint pain - left knee, left great toe Skin: No symptoms reported Hematologic/Lymphatic: No symptoms reported Neurological/Psychological: No symptoms reported -: Yes All other systems reviewed and negative <GLORIA MCKEON - Last Filed: 06/11/18 12:36> Physical Exam <EMILI JOSE - Last Filed: 06/11/18 09:14> <GLORIA MCKEON - Last Filed: 06/11/18 12:36> - Vital signs Vitals: Temp Pulse Resp BP Pulse Ox 98.0 F 92 16 184/69 H 99 06/11/18 07:42 06/11/18 07:42 06/11/18 07:42 06/11/18 07:42 06/11/18 07:42 - Notes Notes: Physical Exam: General: Alert, appears well. HEENT: Normocephalic. Atraumatic. PERRL. Extraocular movements intact. Oropharynx clear. Neck: Supple. Non-tender. Respiratory: No respiratory distress. Clear and equal breath sounds bilaterally. Cardiovascular: Regular rate and rhythm. Abdominal: Normal Inspection. Non-tender. No distension. Normal Bowel Sounds. Back: Non-tender. No deformity or step off. Extremities: Moves all four extremities. Upper extremities: Normal inspection. Normal ROM. Lower extremities: Left great toe has discoloration/ecchymosis with swelling with tenderness on palpation. Medial right great toe has superficial laceration. Generalized left knee ttp. Holding left knee in extension, pain with flexion. Neurological: Normal cognition. AAOx4. Normal speech. Psychological: Normal affect. Normal Mood. Skin: Warm. Dry. Normal color. (GLORIA MCKEON) Course - Diagnostic Test Radiology reviewed: Image reviewed, Reports reviewed - Left first toe has a corner fracture involving the articular surface at the base of the proximal phalanx on the medial side. Left knee shows a small suprapatellar effusion. <EMILI JOSE - Last Filed: 06/11/18 09:14> - Vital Signs Vital signs: Temp Pulse Resp BP Pulse Ox 99.1 F 88 16 155/82 H 95 06/11/18 09:25 06/11/18 09:25 06/11/18 07:42 06/11/18 09:25 06/11/18 09:25 Discharge <EMILI JOSE - Last Filed: 06/11/18 09:14> <GLORIA MCKEON - Last Filed: 06/11/18 12:36> - Discharge Clinical Impression: Fall Qualifiers: Encounter type: initial encounter Qualified Code(s): W19.XXXA - Unspecified fall, initial encounter Sprain of left knee Qualifiers: Encounter type: initial encounter Involved ligament of knee: unspecified ligament Qualified Code(s): S83.92XA - Sprain of unspecified site of left knee, initial encounter Fracture of great toe, left, closed Qualifiers: Encounter type: initial encounter Phalanx: proximal Fracture alignment: nondisplaced Qualified Code(s): S92.415A - Nondisplaced fracture of proximal phalanx of left great toe, initial encounter for closed fracture Condition: Stable Disposition: HOME, SELF-CARE Additional Instructions: Sprained Knee: Your sprained knee results from a stretching or tearing of the ligaments which support the joint. This often results from a bending stress -- such as a twisting fall while skiing or a "clip" while playing football. The ligaments will require time and protection to heal adequately. A knee sprain can be quite serious, and should be taken seriously. The usual treatment is splinting of the knee, ice packs, and elevation. You shouldn't walk on the leg if weightbearing is painful. Unless the sprain is obviously a minor one, follow-up exam is very important. The degree of ligament damage often cannot be fully assessed at first due to muscle spasm and pain. Your treatment plan may change based on the physician's findings during your follow-up examination. Call the doctor at once if there is severe swelling, increasing pain, numbness, or other alarming symptoms. Fractured Toe: You have fractured your toe. Although this fracture doesn't need a cast or splint, emergency evaluation was needed to assess the straightness of the bones and joints. Reduction ("setting") is necessary for toe fractures which are crooked or twisted. A toe fracture will heal in about three weeks. Usually, the fractured toe is taped to the next toe. The second toe acts as a moving splint to protect the broken one. Ice and elevation help during the first 48 hours. You may need crutches at first if walking is painful. When you begin walking, be careful NOT to do things that hurt. If weight bearing is not comfortable within a few days, you may require a special shoe, walking boot, or cast. Call the doctor or return at once if severe swelling, severe pain, or numbness develop in the toe, or if you suspect you may have re-injured it. Your blood pressure was quite high when you came in today. Be sure you do not miss any doses of your blood pressure medication. Follow-up with your primary care provider to adjust her medications if your pressure remains high. Use the knee immobilizer and the postop shoe whenever you try to walk to protect the knee and the broken toe. Elevate your foot as much as possible. Take Tylenol and ibuprofen or Aleve for pain as needed. Call your orthopedic surgeon that you have seen in the past to schedule an appointment for next week. RETURN TO THE EMERGENCY ROOM IF ANY NEW OR WORSENING SYMPTOMS. Referrals: Filipe ALVARADO MD [ACTIVE STAFF] - Follow up as needed Scribe Attestation: 06/11/18 08:54 I personally performed the services described in the documentation, reviewed and edited the documentation which was dictated to the scribe in my presence, and it accurately records my words and actions. (EMLII JOSE) Scribe Documentation - Scribe Written by Mary Janeibmyron:: Julieta Hartley, 06/11/2018 1236 acting as scribe for :: Nava <GLORIA MCKEON - Last Filed: 06/11/18 12:36>
--- NOTE | 2018-06-11 08:57 | RADIOLOGY REPORT (SQ) ---
EXAM DESCRIPTION: KNEE LEFT 3 VIEWS COMPLETED DATE/TIME: 06/11/2018 8:35 am REASON FOR STUDY: Fall in tub, hip knee foot pain COMPARISON: None. NUMBER OF VIEWS: three views. TECHNIQUE: AP, lateral, and sunrise patella radiographic images acquired of the left knee. LIMITATIONS: None. FINDINGS: MINERALIZATION: Normal. BONES: No acute fracture or dislocation. Enthesiophyte at the quadriceps tendon insertion. JOINT: Mild narrowing of the patellofemoral, medial and lateral compartments with small osteophytes off of the articular margins. Suprapatellar effusion. SOFT TISSUES: No soft tissue swelling. No radio-opaque foreign body. OTHER: No other significant finding. IMPRESSION: 1. No acute osseous findings. 2. Tricompartmental mild osteoarthrosis. 3. Suprapatellar effusion. TECHNICAL DOCUMENTATION: JOB ID: [id number] [employer]- All Rights Reserved Reading location - IP/workstation name: [email or web address]
--- NOTE | 2018-06-11 08:59 | RADIOLOGY REPORT (SQ) ---
EXAM DESCRIPTION: FEMUR LEFT COMPLETED DATE/TIME: 06/11/2018 8:35 am REASON FOR STUDY: Fall in tub, hip knee foot pain COMPARISON: None. NUMBER OF VIEWS: Two views. TECHNIQUE: Two radiographic images acquired of the left femur to include hip and knee in at least on e projection. LIMITATIONS: None. FINDINGS: MINERALIZATION: Normal. BONES: No acute fracture. No worrisome bone lesions. SOFT TISSUES: No obvious swelling or foreign body. OTHER: Tricompartmental osteoarthrosis left knee. Suprapatellar effusion. IMPRESSION: 1. NEGATIVE STUDY OF THE LEFT FEMUR. TECHNICAL DOCUMENTATION: JOB ID: [id number] [employer]- All Rights Reserved Reading location - IP/workstation name: [email or web address]
--- NOTE | 2018-06-11 09:04 | RADIOLOGY REPORT (SQ) ---
EXAM DESCRIPTION: FOOT LEFT COMPLETE COMPLETED DATE/TIME: 06/11/2018 8:35 am REASON FOR STUDY: Fall in tub, hip knee foot pain COMPARISON: None. NUMBER OF VIEWS: Three views. TECHNIQUE: AP, lateral and oblique radiographic images acquired of the left foot. LIMITATIONS: None. FINDINGS: MINERALIZATION: Normal. BONES: Nondisplaced intra-articular fracture base of proximal phalanx, great toe. Plantar calcaneal spur. Accessory navicular ossicle, normal anatomic variant. JOINTS: Slight to mild degenerative changes at the first metatarsophalangeal joint. SOFT TISSUES: Soft tissue swelling great toe. No foreign body. OTHER: No other significant finding. IMPRESSION: 1. Nondisplaced intra-articular fracture base of proximal phalanx, great toe. COMMENT: 1. The results of this examination were discussed with emergency department provider on and 08:58 hours. TECHNICAL DOCUMENTATION: JOB ID: [id number] [employer]- All Rights Reserved Reading location - IP/workstation name: [email or web address]
[2018-06-11 09:26] VITALS: BP 155/82
== END 2018-06-11 09:42 | disposition home or self-care (01) ==
LOC: ER 07:37
DX: S83.92XA Sprain of unspecified site of left knee, initial encounter (principal); S92.415A Nondisplaced fracture of proximal phalanx of left great toe, initial encounter for closed fracture; W19.XXXA Unspecified fall, initial encounter; I25.2 Old myocardial infarction; E78.00 Pure hypercholesterolemia, unspecified; I10 Essential (primary) hypertension; E11.9 Type 2 diabetes mellitus without complications; E03.9 Hypothyroidism, unspecified
CPT/HCPCS: 99283; 73552; 73630; 73562; L1830